=== PATIENT | male | born 2005 | race African-American/Black ===

== ENCOUNTER 2024-04-07 23:12 | Emergency (ER) | payer SELFPAY ==
[2024-04-07 23:20] VITALS: BP 136/91; PULSE 79; RESP 20; TEMP 97.8
[2024-04-07] MEDS ORDERED: IBUPROFEN 400 MG TABLET (FP) PO ONE (23:40)
[2024-04-07] MEDS: IBUPROFEN 400 MG TABLET (FP) PO ONE (23:43)
[2024-04-08] MEDS ORDERED: PROPOFOL 20 ML ONE (00:50)
== END 2024-04-08 01:45 | disposition home or self-care (01) ==
LOC: FER 23:12
PROC: 0RSJXZZ Reposition Right Shoulder Joint, External Approach (ICD-10-PCS; principal; 2024-04-07)
DX: S43.015A Anterior dislocation of left humerus, initial encounter (principal); Y04.0XXA Assault by unarmed brawl or fight, initial encounter
CPT/HCPCS: 73030-TC-LT-FY; 99283-25